=== PATIENT | male | born 2005 ===

== ENCOUNTER 2025-09-01 09:24 | Outpatient (REF) | payer OTHER, SELFPAY ==
--- OUTSIDE RECORDS SUMMARY | 2022-03-05 23:00 | XMS_ITS | Encounter Summary ---
Author Organization [facility] Address [address] [place] [address] Phone Care Team Providers Care Carpet Installer Name Role Phone Unavailable Primary Care Provider Unavailabl e Encounter Details Date Type Department Care Team ([facility] st Contact Info) Description 03/06/2022 Hospital Encounter [facility]G OUTSIDE [address] [place] [phone] Jere Kumar MD [address] [place] [phone] [email or web address] Social History Tobacco Use Types Packs/Day Years Used Date Smoking Tobacco: Never Smokeless Tobacco: Never Alcohol Use Standard Drinks/Week Comments Not Currently 0 (1 standard drink = 0.6 oz pur e alcohol) Education Answer Date Recorded Are you interested in more education? Not on dino e 02/03/2023 Are you concerned about learning? Not on file 02/03/2023 No 02/03/2023 No 02/03/2023 Digital Access Answer Date Recorded No 03/06/2023 No 03/06/2023 Reliable internet access at home? Not on file 03/06/2023 Device with a working camera? Not on file Sex and Gender Information Value Date Recorded Sex Assigned at Not on file Legal Sex Male 10:52 AM EDT Gender Identity Not on file Sexual Orientation Not on file documented as of this encounter Plan of Treatment Not on file documented as of this encounter Procedures Procedure Name Priority Date/Time Associated Diagnosis Comments CT CHEST OUTSIDE (NO INTERPRETATION) Routine 03/06/2022 12:00 AM EDT documented in this encounter Results * CT Chest Outside (No Interpretation) (03/06/2022 12:00 AM EDT) Narrative [facility]GE IMG INTERFACES - 05/08/2022 8:18 AM EDT This study is for PACS storage only and not for interpretation. us Jere Kumar MD IMG OUTSIDE IMAGING W/OUT INTER PRETATION Final Result [facility] IMG INTERFACES documented in this encounter Visit Diagnoses Not on filedocumented in this encounter Additional Source Comments The information contained in this document represents components of the legal health record. It is not the complete legal health record.[facility]
--- OUTSIDE RECORDS SUMMARY | 2022-03-05 23:05 | XMS_ITS | Encounter Summary ---
Author Organization [facility] Address [address] [place] [address] Phone Care Team Providers Care Assistant Wrestling Coach Name Role Phone Unavailable Primary Care Provider Unavailabl e Encounter Details Date Type Department Care Team ([facility] st Contact Info) Description 03/06/2022 12:05 AM EDT Hospital Encounter [facility]G OUTSIDE [address] [place] [address] Jere Kumar MD [address] [place] [phone] [email or web address] Social History Tobacco Use Types Packs/Day Years [...] Name Priority Date/Time Associated Diagnosis Comments CT HEAD OUTSIDE (NO INTERPRETATION) Routine 03/06/2022 12:05 AM EDT documented in this encounter Results * CT Head Outside (No Interpretation) (03/06/2022 12:05 AM EDT) Narrative [facility]ORGE IMG INTERFACES - 05/08/2022 8:19 AM EDT This study is for PACS storage only and not for interpretation. us Jere Kumar MD IMG OUTSIDE IMAGING W/OUT INTER PRETATION Final Result [facility] IMG INTERFACES documented in this encounter Visit Diagnoses Not on filedocumented in this encounter Additional Source Comments The information contained in this document represents components of the legal health record. It is not the complete legal health record.[facility]
--- OUTSIDE RECORDS SUMMARY | 2022-03-05 23:10 | XMS_ITS | Encounter Summary ---
Author Organization [facility] Address [address] [place] [address] Phone Care Team Providers Care Director Of Retail Merchandising Name Role Phone Unavailable Primary Care Provider Unavailabl e Encounter Details Date Type Department Care Team ([facility] st Contact Info) Description 03/06/2022 12:10 AM EDT Hospital Encounter [facility] IMG OUTSIDE [address] [place] [address] Jere Kumar MD [address] [place] [address] [email or web address] Social History Tobacco Use Types Packs/Day Years [...] Name Priority Date/Time Associated Diagnosis Comments CT FACE OUTSIDE (NO INTERPRETATION) Routine 03/06/2022 12:10 AM EDT documented in this encounter Results * CT Face Outside (No Interpretation) (03/06/2022 12:10 AM EDT) Narrative JORGE IMG INTERFACES - [...] It is not the complete legal health record.[facility]
--- OUTSIDE RECORDS SUMMARY | 2025-09-01 16:05 | XMS_ITS | Encounter Summary ---
Author Organization [facility] Address [address] [place] [address] Phone Care Team Providers Care Piece Work Inspector Name Role Phone Ulices Mon MD Primary Care Provider [phone] Encounter Details Date Type Department Care Team (Late st Contact Info) Description 12/12/2013 Documentation [facility] [place] Family Medicine [address] [place] [address] Family Medicine, Physician [address] [place], [place] [phone] Social History Tobacco Use Types Packs/Day Years Used Date Smoking Tobacco: Never Assessed Sex and Gender Information Value Date Recorded Sex Assigned at Not on file Legal Sex Male 5:14 PM EDT Gender Identity Male 06/05/2023 9:38 AM EDT Sexual Orientation Straight 07/02/2019 2: 36 PM EDT documented as of this encounter Plan of Treatment Not on file documented as of this encounter Visit Diagnoses Not on filedocumented in this encounter Care Teams Piece Work Inspector Relationship Specialty Start Date End Date Ulices Mon MD [address] [facility] [place] [address] PCP - General Pediatrics 09/16/19 06/02/25 documented as of this encounter
--- OUTSIDE RECORDS SUMMARY | 2025-09-01 16:05 | XMS_ITS | Encounter Summary ---
Author Organization [facility] Address [address] [place] [address] Phone Care Team Providers Care Field Instructor Name Role Phone Ulices Mon MD Primary Care Provider Encounter Details Date Type Department Care Team (Late st Contact Info) Description 08/22/[address] [facility] [place] Family Medicine [address] [place] [address] Family Medicine, Physician [address] [place], [place] [phone] Social History Tobacco Use Types Packs/Day Years [...] on filedocumented in this encounter Care Teams Field Instructor Relationship Specialty Start Date End Date Ulices Mon MD 150 [facility] [place] [address] PCP - General Pediatrics 09/16/19 06/02/25 documented as of this encounter
--- OUTSIDE RECORDS SUMMARY | 2025-09-01 16:05 | XMS_ITS | Encounter Summary ---
Author Organization [facility] Address [address] [place] [address] Phone Care Team Providers Care Hydroelectric Station Operator Name Role Phone Ulices Mon MD Primary Care Provider Encounter Details Date Type Department Care Team (Late st Contact Info) Description 05/24/2017 Conversion Encounter [facility] [address] [place] [address] Social History Tobacco Use Types Packs/Day Years [...] on filedocumented in this encounter Care Teams Hydroelectric Station Operator Relationship Specialty Start Date End Date Ulices Mon MD 150 [place] [address] PCP - General Pediatrics 09/16/19 06/02/25 documented as of this encounter
--- OUTSIDE RECORDS SUMMARY | 2025-09-01 16:05 | XMS_ITS | Clinical Summary ---
Author Organization [facility] Address [address] [place] [address] Phone Care Team Providers Care Molded Goods Spot Picker Name Role Phone Ulices Mon MD Primary Care Provider [phone] Allergies Active Allergy Reactions Criticality Noted Date Comments Other Rash Low 03/14/2022 Seasonal Other reaction(s): cotton candy ice cream cotton candy, ice cream Pollen Extracts 06/20/2022 seasonal allergy Medications No known medications Social History Tobacco Use Types Packs/Day Years [...] on file Sexual Orientation Not on file Last Filed Vital Signs Vital Sign Reading Time Taken Comments Blood Pressure 127/71 06/20/2022 4:59 PM EDT Pulse 71 06/20/2022 4:59 PM EDT Temperature 36.3 C (97.4 F) 06/20/2022 4:18 PM EDT Respiratory Rate 16 06/20/2022 4:59 PM EDT Oxygen Saturation 99% 06/20/2022 4:59 PM EDT Inhaled Oxygen Concentration - - Weight 70.3 kg (155 lb) 06/20/2022 11:44 AM EDT Height 172.7 cm (5' 8 ) 06/20/2022 11:44 AM EDT Body Mass Index 23.57 06/20/2022 11:44 AM EDT Plan of Treatment Health Maintenance Due Date Last Done Comments DEPRESSION SCREENING 2016 SMOKING Hx and SMOKELESS TOBACCO SCREENING 2017 ADOLESCENT UNIVERSAL LIPID SCREENING 2021 MENINGOCOCCAL VACCINES (B) (2 of 2 - Trumenba SCDM 2-dose series) 01/12/2022 07/14/2021 HEPATITIS C SCREENING 2022 HIV ONE-TIME SCREENING (18-65 YEARS) 2022 COMBINED DTaP,Tdap,Td (3 - Td or Tdap) 09/06/2022 03/07/2022, 06/23/2015 INFLUENZA VACCINE (#1) 2025 , 07/02/2019, 07/25/2018, Additional history exists COVID-19 VACCINE ( season) 2025 Adult Td,Tdap Booster 03/07/2032 03/07/2022, 015 MMR VACCINES Completed 06/22/2008, 06/01/2005 HPV VACCINES Completed 02/10/2016, 09/06/2015 MENINGOCOCCAL VACCINES (ACWY) Completed 05/31/2020 HEPATITIS A VACCINES Aged Out No long er eligible based on patient's age to complete this topic HIB VACCINES Aged Out No longer eligi ble based on patient's age to complete this topic PNEUMOCOCCAL VACCINES (0-49 years) Aged Out No longer eligible based on patient's age to complete this topic Medical Devices Not on file Care Teams Molded Goods Spot Picker Relationship Specialty Start Date End Date Ulices Mon MD [address] [place] [address] [place] [address] PCP - General 04/25/22 Additional Source Comments The information contained in this document represents components of the legal health record. It is not the complete legal health record.[facility]
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
--- OUTSIDE RECORDS SUMMARY | 2025-09-01 16:05 | XMS_ITS | Encounter Summary ---
Author Organization [facility] Address [address] [place] [address] Phone Care Team Providers Care Smoking Pipe Repairer Name Role Phone Ulices Mon MD Primary Care Provider [phone] Encounter Details Date Type Department Care Team (Late st Contact Info) Description 03/07/2012 Documentation [facility] [place] Family Medicine [address] [place] [address] Family Medicine, Physician [address] [place], [place] [phone] Social History Tobacco Use Types Packs/Day Years [...] on filedocumented in this encounter Care Teams Smoking Pipe Repairer Relationship Specialty Start Date End Date Ulices Mon MD 150 [facility] [place] [address] PCP - General Pediatrics 09/16/19 06/02/25 documented as of this encounter
--- OUTSIDE RECORDS SUMMARY | 2025-09-01 16:05 | XMS_ITS | Encounter Summary ---
Author Organization [facility] Address [address] [place] [address] Phone Care Team Providers Care Software Packager Name Role Phone Ulices Mon MD Primary Care Provider [phone] Encounter Details Date Type Department Care Team (Late st Contact Info) Description 02/08/2016 Documentation [facility] [place] [address] [place] [address] Family Medicine, Physician [address] [place], [place] [phone] Social History Tobacco Use Types Packs/Day Years [...] on filedocumented in this encounter Care Teams Software Packager Relationship Specialty Start Date End Date Ulices Mon MD 150 [facility] [place] [address] PCP - General Pediatrics 09/16/19 06/02/25 documented as of this encounter
--- OUTSIDE RECORDS SUMMARY | 2025-09-01 16:05 | XMS_ITS | Encounter Summary ---
Author Organization [facility] Address [address] [place] [address] Phone Care Team Providers Care Botanical Technical Officer Name Role Phone Ulices Mon MD Primary Care Provider [phone] Encounter Details Date Type Department Care Team (Late st Contact Info) Description 12/15/2014 Documentation [facility] [place] Medicine [address] [place] [address] Family Medicine, Physician [address] [place], [place] [phone] Social History Tobacco Use Types Packs/Day Years [...] on filedocumented in this encounter Care Teams Botanical Technical Officer Relationship Specialty Start Date End Date Ulices Mon MD 150 [facility] [place] [address] PCP - General Pediatrics 09/16/19 06/02/25 documented as of this encounter
--- OUTSIDE RECORDS SUMMARY | 2025-09-01 16:05 | XMS_ITS | Encounter Summary ---
Author Organization [facility] Address [address] [place] [address] Phone Care Team Providers Care Energy Sales Broker Name Role Phone Ulices Mon MD Primary Care Provider [phone] Encounter Details Date Type Department Care Team (Late st Contact Info) Description 06/20/2022 Procedure Pass [facility] [address] [place] [address] Social History Tobacco Use Types Packs/Day Years Used Date Smoking Tobacco: Never Smokeless Tobacco: Never Alcohol Use Standard Drinks/Week Comments Not Currently 0 (1 standard drink = 0.6 oz pur e alcohol) Sex and Gender Information Value Date Recorded Sex Assigned at Not on file Legal Sex Male 10:52 AM EDT Gender Identity Not on file Sexual Orientation Not on file documented as of this encounter Plan of Treatment Not on file documented as of this encounter Visit Diagnoses Not on filedocumented in this encounter Care Teams Energy Sales Broker Relationship Specialty Start Date End Date Ulices Mon MD [address] [place] [address] [place] [address] PCP - General 04/25/22 documented as of this encounter Additional Source Comments The information contained in this document represents components of the legal health record. It is not the complete legal health record.[facility]
--- OUTSIDE RECORDS SUMMARY | 2025-09-01 16:05 | XMS_ITS | Encounter Summary ---
Author Organization [facility] Address [address] [place] [address] Phone Care Team Providers Care Car Dumper Name Role Phone Ulices Mon MD Primary Care Provider [phone] Encounter Details Date Type Department Care Team (Late st Contact Info) Description 07/12/2016 Documentation [facility] [place] Family Medicine [address] [place] [address] Family Medicine, Physician [address] [place], [place] [phone] Social History Tobacco Use Types Packs/Day Years [...] on filedocumented in this encounter Care Teams Car Dumper Relationship Specialty Start Date End Date Ulices Mon MD 150 [facility] [place] [address] PCP - General Pediatrics 09/16/19 06/02/25 documented as of this encounter
== END 2025-09-01 09:25 | disposition home or self-care (01) ==
LOC: WCCF 09:24
PROVIDERS: Visit Provider Physician Assistant Medical
DX: R55 Syncope and collapse (principal); R42 Dizziness and giddiness
CPT/HCPCS: 80048; 85025; 99204